=== PATIENT | female | born 1955 | race Two or more races ===

== ENCOUNTER 2017-06-27 10:45 | Outpatient (CLI) | payer OTHER | END 2017-06-27 10:55 | disposition home or self-care (01) | LOC: RAD 10:45 | DX: G56.01 Carpal tunnel syndrome, right upper limb (principal); M17.12 Unilateral primary osteoarthritis, left knee ==

== ENCOUNTER 2018-01-03 08:48 | Outpatient (CLI) | payer OTHER | END 2018-01-03 08:52 | disposition home or self-care (01) | LOC: RAD 08:48 | DX: J45.909 Unspecified asthma, uncomplicated (principal) ==

== ENCOUNTER 2019-05-31 14:00 | Outpatient (CLI) | payer OTHER ==
[~2019-05-31] VITALS: Ht 170.2 cm; Wt 68.0 kg
== END 2019-05-31 16:28 | disposition home or self-care (01) ==
LOC: OFIC 805 14:00
DX: R09.81 Nasal congestion (principal); J34.3 Hypertrophy of nasal turbinates; J32.8 Other chronic sinusitis